=== PATIENT | female | born 1970 ===

== ENCOUNTER 2017-04-09 08:28 | Emergency (ER) | payer OTHER ==
[~2017-04-09] VITALS: Ht 162.6 cm; Wt 48.6 kg
[2017-04-09 08:34] VITALS: BP 127/69; PULSE 65; RESP 16; TEMP 97.4; O2SAT 99
[2017-04-09] MEDS ORDERED: MUSCLE RELAXER (08:44)
--- NOTE | 2017-04-09 08:57 | PD ---
HPI Chief Complaint: GI Complaint Time Seen by Provider: 08:44 Travel History International Travel<30 days: No Contact w/Intl Traveler<30days: No Traveled to known affect area: No History of Present Illness HPI This patient speaks Ukrainian and her translates. They do not want formal translation services. He is fluent in [place] and [place]. She complains of a room spinning dizziness and nausea. No fever or diarrhea or abdominal or chest pain or shortness of breath. Took a new supplement they ordered on line which is supposed to be in energy booster. She took it at 7 AM. Symptoms started approximately 30 minutes later. This was the first time she ever took it and plans to never take it again. She denies headache. No alleviating factors. Duration 90 minutes. Symptoms severity is moderate PFSH Past Medical History ?: Not Social History Alcohol Use: No Tobacco Use: No Substance Use: No Allergies-Medications (Allergen,Severity, Reaction): Coded Allergies: No Known Allergies (Unverified , 04/09/17) Reported Meds & Prescriptions Reported Meds & Active Scripts Active Reported [Muscle Relaxer] Unknown Dose Review of Systems General / Constitutional: No: Fever Eyes: No: Visual changes HENT: Positive: Vertigo, No: Headaches Cardiovascular: No: Chest Pain or Discomfort Respiratory: No: Shortness of Breath Gastrointestinal: Positive: Nausea, No: Abdominal Pain Genitourinary: No: Dysuria Musculoskeletal: No: Pain Skin: No Rash Neurologic: No: Weakness Psychiatric: No: Depression Endocrine: No: Polydipsia Hematologic/Lymphatic: No: Easy Bruising Physical Exam Narrative GENERAL: Well-nourished, well-developed patient with vertigo and nausea . SKIN: Focused skin assessment reveals no rash and nodules. Skin is Warm and dry. HEAD: Atraumatic. Normocephalic. EYES: Pupils equal and round. No scleral icterus. No injection or drainage. ENT: No nasal bleeding or discharge. Mucous membranes pink and moist. NECK: Trachea midline. No JVD. CARDIOVASCULAR: Regular rate and rhythm. No murmur appreciated. RESPIRATORY: No accessory muscle use. Clear to auscultation. Breath sounds equal bilaterally. GASTROINTESTINAL: Abdomen soft, non-tender, nondistended. Hepatic and splenic margins not palpable. MUSCULOSKELETAL: No obvious deformities. No clubbing. No cyanosis. No edema. NEUROLOGICAL: Awake and alert. No obvious cranial nerve deficits. Motor grossly within normal limits. Normal speech. PSYCHIATRIC: Appropriate mood and affect; insight and judgment normal. Data Data Last Documented VS Vital Signs Date Time Temp Pulse Resp B/P Pulse Ox O2 Delivery O2 Flow Rate FiO2 04/09/17 09:44 58 16 124/69 100 Room Air 04/09/17 08:34 97.4 Orders Ondansetron Inj (Zofran Inj) (04/09/17 09:00) Meclizine (Antivert) (04/09/17 09:00) [facility] Medical Decision Making Medical Screen Exam Complete: Yes Emergency Medical Condition: Yes Medical Record Reviewed: Yes Differential Diagnosis Medication side effect, positional vertigo, labyrinthitis Narrative Course I have reviewed the patient's electronic medical record. Patient's exam is normal. Vital signs are normal Abdomen is soft and benign and nontender Is neurologically intact Presentation seems consistent with positional vertigo. This may or may not have to do with this new supplement she took 30 minutes prior to symptom onset. They will not take to supplement anymore. Her body should metabolize it and symptoms should resolve this caused by that. Extended cardiac monitoring reveals sinus rhythm at 65 without ectopy I gave her an injection of Zofran and a dose of meclizine and will reassess On reassessment she feels much better Zofran and meclizine prescribed Diagnosis Primary Impression: Benign positional vertigo Qualified Code: H81.10 - Benign paroxysmal positional vertigo, unspecified laterality Additional Impression: Nausea and vomiting in adult Additional Instructions: The patient was advised to follow up with their physician and return if they worsen. The patient was warned about potential sedation for the medications they will receive on prescription. Med/Other Pt SpecificInfo: Prescription(s) given Scripts Meclizine 25 Mg Tab25 Mg PO TID PRN (VERTIGO) #15 TAB Ref 0 Prov:Low Chamorro MD 04/09/17 Ondansetron (Zofran)4 Mg Tab4 Mg PO Q6HR PRN (NAUSEA OR VOMITING) #10 TAB Ref 0 Prov:Low Chamorro MD 04/09/17 Disposition: 01 DISCHARGE HOME Condition: Stable Low Chamorro MD Apr 09, 2017 08:57
[2017-04-09] MEDS ORDERED: ONDANSETRON HCL 4 MG/2 ML VIAL IM ONE (09:00)
[2017-04-09] MEDS ORDERED: MECLIZINE HCL 25 MG TAB PO ONE (09:00)
[2017-04-09 09:44] VITALS: BP 124/69; PULSE 58; RESP 16; O2SAT 100
[2017-04-09] MEDS ORDERED: MECL-62 PO (10:36)
[2017-04-09] MEDS ORDERED: ZOFR4TAB PO (10:36)
[2017-04-09 10:37] VITALS: BP 110/70; PULSE 58; RESP 16; O2SAT 100
== END 2017-04-09 10:43 | disposition home or self-care (01) ==
LOC: PHED 08:28
DX: H81.10 Benign paroxysmal vertigo, unspecified ear (principal); R11.2 Nausea with vomiting, unspecified
CPT/HCPCS: 96372; 99284; J2405